=== PATIENT | male | born 1960 | race Caucasian/White ===

== ENCOUNTER 2022-02-15 07:02 | Outpatient (CLI) | payer BC, SELFPAY ==
--- NOTE | 2022-02-15 07:51 | ECG_ITS ---
Measurements Intervals [place] Rate: 68 P: 29 FL: 161 QRS: 53 QRSD: 118 T: 39 QT: 414 QTc: 442 Interpretive Statements SINUS RHYTHM INTRAVENTRICULAR CONDUCTION DELAY NO PREVIOUS ECG AVAILABLE FOR COMPARISON Electronically Signed On 02-15-2022 17:20:31 CDT by Sherice Tejeda M.D.
== END 2022-02-15 07:03 | disposition home or self-care (01) ==
LOC: ANHLAB 07:05
PROVIDERS: PCP Family Medicine; Visit Provider Urology
DX: E78.5 Hyperlipidemia, unspecified (principal); R89.6 Abnormal cytological findings in specimens from other organs, systems and tissues; Z01.818 Encounter for other preprocedural examination; I45.9 Conduction disorder, unspecified
CPT/HCPCS: 87086; 93005

== ENCOUNTER 2022-02-20 00:40 | Day surgery (SDC) | payer BC, SELFPAY ==
[2022-02-14 16:40] VITALS: BMI 30.5
--- NOTE | 2022-02-14 17:20 | PC.NURSE ---
Report to the Outpatient Waiting Room, entrance under the green pavilion located off [facility], at time 0800 on date 02/20/22. OR Time: _1000__. Time changes happen often and if your time is changed the preop area will call you the afternoon before. - You and your visitor will be asked to self-screen and do not enter if you have any COVID symptoms. - Only one visitor and NO children visitors are allowed at this time. - The patient visitor is requested to leave or wait in car when not with patient due to restrictions. - A mask is required within the hospital. Patients may have clear liquids (water, carbonated beverages, clear teas, apple juice) until 3 hours prior to surgery with a maximum of 20 ounces. - No food from midnight until time of surgery - Infants may have breast milk until 4 hours before surgery, infant formula 6 hours prior to surgery. - Children will be allowed to drink immediately following surgery. If applicable, please bring a bottle or sippy cup to assist with drinking. Juice, water, soda, and popsicles are readily available. For infants on formula, please bring formula the day of surgery. Pacifiers are allowed. Take the following medications with a SIP of water the morning of surgery: n/a__ Medications to discontinue per physician _vitamins and supplement-02/17/22, pt is also stopping his aspirin(02/14/22) Date to take last dose Please no make-up, nail qatari, hairspray, perfume, deodorant, or body powder the day of surgery. No jewelry (including any body piercings) or valuables the day of surgery, leave them at home. Please take a shower or bath the night before, or the morning of, surgery with an antibacterial soap. Wear comfortable, loose fitting clothing. Children are encouraged to wear pajamas. - Jewelry must be removed prior to entering the operating room. Rings and piercings that are not removed may be cut off. - The hospital will not accept responsibility for valuables. - Please leave all valuables, including medications, at home the day of surgery. If you are going home after surgery, a licensed truck driver's offsider must drive you home. - NO public transportation without another adult. - We recommend that an adult stay with you for 24 hours following discharge. - We also recommend that you do not drive, make important decision, drink alcoholic beverages, or take any drugs that were not prescribed by your health care provider for at least 24 hours after your discharge time. For Pediatric surgeries, we recommend two adults accompany the child home (only one inside the building at this time). Follow any additional instructions given to you from your surgeon. If you or anyone in your household have experienced Covid symptoms in the past week, please notify your surgeon or the nurse liaison at the phone number below for possible testing. Telephone instructions given to Ana Martinez and asked if any additional questions and then verbalized understanding. Patient advised to call surgeon office or pre surgery nurse liaison [phone] if any additional questions.
[2022-02-20] VITALS (8 sets, daily range): BP systolic 116–129; BP diastolic 72–89; PULSE 71–92; RESP 12–16; TEMP 37–37.7; O2SAT 96–98
--- NOTE | ~2022-02-20 | XR_ITS ---
EXAMINATION: XR retrograde pyelo w/stent RT DATE: 02/20/2022 11:06 INDICATION: Right retrograde pyelogram and internal ureteral stent placement TECHNIQUE: 4 fluoroscopic images of the abdomen and pelvis were obtained during procedure performed b isiah Tamez. Radiologist was not present for the imaging or procedure. The amount of fluoroscopy t nasir used during this procedure was 0.4 minutes. COMPARISON: None. FINDINGS: Retrograde contrast opacification of the right ureter and renal collecting system which demonstrates no evident filling defects or urothelial irregularities. Final images demonstrate placement of a righ t internal ureteral stent with loops formed in the right renal pelvis and in the bladder. IMPRESSION: 1. Right internal ureteral stent in expected position post normal retrograde pyelogram. See procedure note for further detail. Reviewed, dictated and finalized at location B. IMPRESSION: 1. Right internal ureteral stent in expected position post normal retrograde py elogram. See procedure note for further detail.
[2022-02-20 08:29] LABS: Glucose Point of Care 109 mg/dl (65-105)
[2022-02-20] MEDS: LACTATED RINGERS 1,000 ML 30 ML IV CONT ×2 (08:30→11:46)
--- NOTE | 2022-02-20 08:40 | WPDANESEPPF ---
Anes - Initial Pre Proc Eval Procedure: Operation Date: 02/20/22 10:00 Proposed Procedures p Cystoscopy with Bladder Biopsy, Possible Bilateral Retrograde Pyelograms, Possible Bilateral Ureteral Stent Placement - Reilly Tamez MD Date/Time: 02/20/22 08:40 Surgeon: Reilly Tamez MD Pre Op Diagnosis: Abnormal Cytolgy Patient Data Age: 61 Gender: M Height: 1.85 m Weight: 105 kg Allergies Allergy/AdvReac Type Severity Reaction Status Date / Time No Known Allergies Allergy Verified 02/20/22 08:30 Home Medications Medication Instructions Recorded Confirmed Type ascorbic acid (vitamin C) 250 mg 250 mg PO DAILY 02/14/22 02/14/22 History tablet (Vitamin C) aspirin 81 mg tablet 81 mg PO DAILY 02/14/22 02/14/22 History cholecalciferol (vitamin D3) 10 10 mcg PO DAILY 02/14/22 02/14/22 History mcg (400 unit) capsule (Vitamin D3) citalopram 40 mg tablet 40 mg PO DAILY 02/14/22 02/14/22 History omega 8-fmy-vrk-fish oil 60 mg-90 1 cap PO DAILY 02/14/22 02/14/22 History mg-500 mg capsule (Fish Oil) omeprazole 40 mg capsule,delayed 40 mg PO DAILY 02/14/22 02/14/22 History release simvastatin 40 mg tablet 40 mg PO DAILY 02/14/22 02/14/22 History tadalafil 20 mg tablet 20 mg PO 2XW PRN Erectile 02/14/22 02/14/22 History Dysfunction zolpidem 10 mg tablet 10 mg PO HS 02/14/22 02/14/22 History Laboratory Tests 02/20/22 08:24 POC Capillary Glucose 109 mg/dl H mg/dl (65-105) Patient hx anesthesia problems: none Family hx anesthesia problems: none Results Review: All pre-operative results and documents have been reviewed as part of the pre-operative evaluation. [facility] Past Medical History Medical History Anxiety GERD (gastroesophageal reflux disease) Hx of migraines Hyperlipidemia Irregular heart beat Seizure disorder Social History Social History Smoking packs per day: 2 Smoking cigarettes per day: 40.0 Years smoked: 22 Smoking pack-years: 44.00 Smoking status: Former smoker Tobacco type: cigarettes and cigars Alcohol intake: never Substance use: never Living arrangements: with family Spiritual care concerns: No Anes - Eval Final PreProcedure Day of Procedure 02/20/22 08:40 Patient weight: obese Heart: regular rate and rhythm Lungs: clear to auscultation Airway: Mallampati scale class II Neurological: alert and oriented Last oral intake: >/= 8 hours ASA classification: III Emergent: no Anesthetic plan: proceed Anesthesia type and monitoring: general LMA and standard monitoring Results Review: All pre-operative results and documents have been reviewed as part of the pre-operative evaluation. Informed Consent: The patient's anesthetic plan and its attendant risks and benefits were discussed with the patient/family/POA. Questions were solicited and answers provided to the satisfaction of the patient/family/POA.
[2022-02-20] MEDS: fentaNYL CITRATE INJ (*CRX) 100 MCG/2 ML VIAL 50 MCG IV PUSH (08:44)
[2022-02-20] MEDS: fentaNYL CITRATE INJ (*CRX) 100 MCG/2 ML VIAL 25 MCG IV PUSH (09:32)
--- NOTE | 2022-02-20 10:11 | WPDHPUPDATE1 ---
History and Physical Update Update Date/Time: 02/20/22 10:11 History and Physical has been reviewed, including an updated exam of the patient. There are NO changes in the patient's condition. Risks, benefits, and alternatives have been discussed and questions answered. Patient agrees to proceed with procedure.
[2022-02-20] MEDS: ceFAZolin 2 GM/D5W 50 ML 2 GM/50 ML BAG IVPB (10:19)
[2022-02-20] MEDS: LIDOCAINE HCL 2% GEL UROJET 10 ML PKG MUCOUS MEM (11:00)
--- NOTE | 2022-02-20 11:08 | W.PM.PROC2 ---
Procedure Note - Detailed Date of Procedure 02/20/22 Pre-op Diagnosis Abnormal cytology and bladder lesion Post-op Diagnosis Same Procedure Performed Cystoscopy, right retrograde pyelogram, right ureteroscopy, transurethral resection of bladder tumor and unroofing of right ureteral orifice, right ureteral stent placement 6 [place] contour, urethral dilation Surgeon Reilly Tamez MD Anesthesia General Description of Procedure Patient is taken to the operative suite correctly identified. Once anesthesia was obtained was placed in dorsal lithotomy position and prepped and draped usual sterile fashion. The meatus was dilated up to 26 [place]. Twenty-two [place] cystoscope was inserted into the bladder and direct vision. He has some mild lateral lobe hypertrophy. Upon entering the bladder, was inspected in its entirety. The left ureteral orifice is now visualized adequately without any irregularity around it. He has some irregularity on the floor of the bladder just proximal to the trigone extending over the right ureteral orifice to the right lateral wall. The area in question is at least 5 cm. No other papillary tumors noted at this time. At this point a rigid ureteral scope was inserted into the right ureteral orifice there was no evidence of tumor in the distal or proximal ureter. The intramural ureter appeared without tumors however there was irregularity on the orifice itself. A pyelogram was then performed through the ureteral scope. There was no evidence of filling defects proximally or in the kidney. The ureteral scope was then exchanged out for a 24 [place] resectoscope. I resected the irregularity on the floor proximal to the trigone and needed to unroof the right ureteral orifice in order to completely remove the irregularities. Hemostasis was achieved using electrocautery. Specimen was sent for analysis. The resectoscope sheath was then exchanged for a cystoscope. A guidewire was inserted into the right ureteral orifice. Six [place] contour stent was then placed with the proximal end coiled in the renal pelvis and the distal in the bladder. Given the amount of surface area that was resected a 16 [place] Hope was placed after 2% viscous lidocaine was inserted into the urethra. 10 cc were placed in balloon. He is taken recovery stable condition. Patient will be discharged home with a Hope and have that removed on . He is to call the office to have that performed. Will leave the stent in for a minimum of 6 weeks prior to its removal in the office. He is to call for path results in 1 week. Estimated Blood Loss 10 Drains Yes (Six [place] contour stent) Packing No Pathology Yes Complications No immediate complications Condition Stable Disposition PACU
== END 2022-02-20 13:22 | disposition home or self-care (01) ==
PROVIDERS: PCP Family Medicine; Visit Provider Urology
PROC: (CPT 52352; principal; 2022-02-20 10:00)
PROC: 0TBB8ZZ Excision of Bladder, Via Natural or Artificial Opening Endoscopic (ICD-10-PCS; CPT 52240; 2022-02-20 10:00)
DX: C67.8 Malignant neoplasm of overlapping sites of bladder (principal); E78.5 Hyperlipidemia, unspecified; K21.9 Gastro-esophageal reflux disease without esophagitis; F41.9 Anxiety disorder, unspecified; Z87.891 Personal history of nicotine dependence; E66.9 Obesity, unspecified; Z68.30 Body mass index [BMI] 30.0-30.9, adult; Z79.82 Long term (current) use of aspirin
CPT/HCPCS: 52240; 74420; 82948; 88305; A9270; C1769; C2617; J0131; J0690; J1100; J2250; J2405; J2704; J3010; J7120

== ENCOUNTER 2022-03-13 06:50 | Day surgery (SDC) | payer BC, SELFPAY ==
[2022-03-13] VITALS (11 sets, daily range): BP systolic 114–128; BP diastolic 66–87; PULSE 71–98; RESP 11–18; TEMP 36.1–36.7; O2SAT 93–100
--- NOTE | ~2022-03-13 | CT_ITS ---
EXAMINATION: CT abdomen pelvis w con DATE: 03/13/2022 08:32 INDICATION: Hematuria. Right flank pain. TECHNIQUE: Computed tomography (CT) of the abdomen and pelvis was performed with 100 mL Omnipaque 350 intravenous contrast. Automated exposure control and iterative reconstruction technique were employe d. The dose-length product was 893.52 mGy-cm. COMPARISON: None. FINDINGS: The visualized portions of the lung bases demonstrate mild atelectasis. No pleural effusion . The heart size is normal. No pericardial effusion. There is a small sliding hiatal hernia. There is diffuse hepatic steatosis. The gallbladder, spleen, pancreas, adrenal glands, and left kidney are no rmal. There is mild right hydronephrosis and hydroureter. There is a right internal ureteral stent in expected position. There is hematoma in the right ureter. There is a large volume of hematoma in the bladder. There is mild left hydroureter. The prostate is mildly enlarged. There is a right inguinal hernia containing fat. There are no dilated loops of bowel. The appendix is normal. There is fat stra nding at the root of the small bowel mesentery, which may be inflammation (mesenteric panniculitis) o r edema. There are no pathologically enlarged lymph nodes. There is no free intraperitoneal fluid. Th ere is mild thoracolumbar spondylosis. IMPRESSION: 1. Large volume of hematoma in the bladder. Hematoma in the right ureter. 2. Mild right hydronephrosis and hydroureter with right internal ureteral stent in expected position. 3. Mild left hydroureter. Reviewed, dictated and finalized at location A.
[2022-03-13 07:38] LABS: RBC Urine >75 /hpf (0-2); WBC Urine >75 /hpf
[2022-03-13 07:39] LABS: Add Urine Microscopic? YES; Appearance Urine Turbid (Clear); Color Urine Red (Yellow)
--- NOTE | 2022-03-13 07:43 | ED.GENADULT ---
HPI - General Adult General Chief complaint: Urogenital-Male Stated complaint: hematuria Time Seen by Provider: 03/13/22 07:12 History of Present Illness HPI narrative: 62-year-old male presenting the emergency department for evaluation of gross hematuria. Patient had a urologic procedure done on 02/20. Patient did have a ureteral biopsy and does have a right ureteral stent in place. Patient states he did have some bleeding immediately after the procedure but states he has not been passing any blood since then patient had intense right flank pain this morning and then noticed he was just urinating charles blood. Patient is not on any blood thinners. Patient's only complaint is right flank pain at this time. Patient states he has not had anything to eat or drink since last night Related Data Home Medications Medication Instructions Recorded Confirmed ascorbic acid (vitamin C) 250 mg 250 mg PO DAILY 02/14/22 02/20/22 tablet (Vitamin C) aspirin 81 mg tablet 81 mg PO DAILY 02/14/22 02/20/22 cholecalciferol (vitamin D3) 10 10 mcg PO DAILY 02/14/22 02/20/22 mcg (400 unit) capsule (Vitamin D3) citalopram 40 mg tablet 40 mg PO DAILY 02/14/22 02/14/22 omega 4-jsq-veo-fish oil 60 mg-90 1 cap PO DAILY 02/14/22 02/20/22 mg-500 mg capsule (Fish Oil) omeprazole 40 mg capsule,delayed 40 mg PO DAILY 02/14/22 02/14/22 release simvastatin 40 mg tablet 40 mg PO DAILY 02/14/22 02/14/22 tadalafil 20 mg tablet 20 mg PO 2XW PRN Erectile 02/14/22 02/14/22 Dysfunction zolpidem 10 mg tablet 10 mg PO HS 02/14/22 02/14/22 Allergies Allergy/AdvReac Type Severity Reaction Status Date / Time No Known Allergies Allergy Verified 03/13/22 11:57 Review of Systems Review of Systems: CONSTITUTIONAL: Denies fever, chills, or sweats. EYES: Denies visual changes, redness, or discharge. ENT: Denies rhinorrhea, congestion, sore throat, or otalgia. CARDIOVASCULAR: Denies chest pain, palpitations, or edema. RESPIRATORY: Denies cough or dyspnea. GASTROINTESTINAL: See HPI GENITOURINARY: See HPI SKIN: Denies rash or itching. MUSCULOSKELETAL: Denies back pain, joint pain, or myalgia. NEUROLOGIC: Denies headache, numbness, or weakness. PSYCHIATRIC: Denies anxiety or depression. REPLACED BY [facility] Past Medical History Medical History Anxiety GERD (gastroesophageal reflux disease) Hx of migraines Hyperlipidemia Irregular heart beat Seizure disorder Social History Social History Smoking packs per day: 2 Smoking cigarettes per day: 40.0 Years smoked: 22 Smoking pack-years: 44.00 Smoking status: Former smoker Tobacco type: cigarettes and cigars Alcohol intake: never Substance use: never Gender identity (if verbalized by the patient): Male Sexual Orientation (if Verbalized by the Patient): Straight or Heterosexual Spiritual care concerns: No Exam Narrative: APPEARANCE: Well appearing, no pain, no distress, well-nourished. HEAD: normocephalic, atraumatic. EYES: PERRLA/EOMI, conjunctivae clear. NOSE: Normal no drainage NECK: Supple. No adenopathy, no masses. RESPIRATORY: Airway patent, respirations nonlabored. Clear to auscultation bilaterally, no rales, rhonchi, wheezing. CARDIOVASCULAR: Regular rate and rhythm without murmurs rubs or gallops. ABDOMINAL: Soft, nontender, nondistended, normal bowel sounds MUSCULOSKELETAL: Moves all extremities. Strength/ROM intact, No edema, No calf tenderness. NEURO: Alert. Cranial nerves II through XII intact. Grossly intact SKIN: Warm, dry. Normal Color Course Course Emergency Course: Patient had an irrigating Hope catheter placed due to his gross hematuria. CT scan showed evidence of a large hematoma within the bladder and within the right ureter. Case was discussed with urology. Patient will be taken to the OR. Patient was updated on the results of his work-up including CT
[2022-03-13 07:48] LABS: Basophils Absolute Auto 0.1 K/mm3 (0.0-0.1); Basophils Percent Auto 1.4 % (0.2-1.2); Eosinophils Absolute Auto 0.3 K/mm3 (0-0.3); Eosinophils Percent Auto 4.6 % (0-4.4); Hematocrit 43.7 % (42.0-52.0); Hemoglobin 14.2 g/dL (14.0-18.0); Immature Granulocyte Absolute 0.06 K/mm3 (0.00-0.031); Lymphocytes Absolute Auto 1.61 K/mm3 (0.9-3.2); Lymphocytes Percent Auto 27.6 % (18.3-44.2); Mean Corpuscular HGB Conc 32.5 g/dl (32-36); Mean Corpuscular Hemoglobin 28.9 pg (26-34); Mean Corpuscular Volume 88.8 fl (80-100); Mean Platelet Volume 9.2 fl (7.4-10.4); Monocytes Absolute Auto 0.4 K/mm3 (0.1-0.6); Monocytes Percent Auto 7.4 % (2.6-8.5); Neutrophils Absolute Auto 3.4 K/mm3 (1.3-6.7); Platelet Count Result 274 k/mm3 (150-375); Red Blood Count 4.92 M/mm3 (4.6-6.20); Red Cell Distribution Width 12.8 % (11.5-14.5); White Blood Count 5.8 K/mm3 (4.5-10.0)
[2022-03-13] MEDS: LIDOCAINE HCL 2% GEL UROJET 10 ML PKG (07:49)
[2022-03-13 07:54] LABS: INR 1.1; Prothrombin Time 13.5 Seconds (11.1-14.7)
[2022-03-13 07:55] LABS: Alanine Aminotransferase 27 U/L (6-50); Albumin Level 4.3 g/dL (3.5-5.1); Alkaline Phosphatase 83 U/L (38-126); Anion Gap 11 mmol/L (8-16); Aspartate Amino Transferase 26 U/L (17-59); Bilirubin,Total 0.4 mg/dL (0.2-1.3); Blood Urea Nitrogen 18 mg/dL (9-20); Calcium 8.9 mg/dL (8.4-10.2); Carbon Dioxide 22 mmol/L (22-30); Chloride 106 mmol/L (98-107); Estimated CRCL calculation 80 ml/min; Estimated Glomerular Filt Rate > 60; Glucose 118 mg/dL (65-110); Partial Thromboplastin Time 27.9 SECONDS (22.3-36.8); Potassium 3.8 mmol/L (3.4-5.0); Sodium 139 mmol/L (137-145)
[2022-03-13] MEDS: SODIUM CHLORIDE 0.9% IV 1,000 ML 999 ML IV CONT (08:09)
--- NOTE | 2022-03-13 08:17 | PC.NURSE ---
Pt to CT scan via stretcher at this time.
--- NOTE | 2022-03-13 08:17 | PC.NURSE ---
Pt CBI clogged, irrigated x2 w/ large clots removed. Hope patent at this time.
--- NOTE | 2022-03-13 08:25 | PC.NURSE ---
pt. was triaged and VS obtained at apprx 0700 but data not recorded in EMR; pt. in NAD.
[2022-03-13] MEDS: LACTATED RINGERS 1,000 ML 30 ML IV CONT (12:00)
--- NOTE | 2022-03-13 12:24 | PM.IMHP ---
H&P: HPI History of Present Illness Date/Time: 03/13/22 12:24 Chief Complaint: Gross hematuria with urinary retention Narrative: 62-year-old male who underwent transurethral section of a large bladder tumor overlying the right ureteral orifice. This required unroofing of the orifice and stenting 02/20/2022. Patient did well until today when he developed gross hematuria with clots. Was unable to void presented to the emergency room. CT scan revealed not only large hematoma in the bladder but clot going up the ureter. Patient has CBI going but it is poorly irrigating. Will plan on cysto with clot evacuation in the operating room. Review of Systems Review of Systems: All systems reviewed & are unremarkable except as noted in HPI and below PMFSH Past Medical History Medical History Anxiety GERD (gastroesophageal reflux disease) Hx of migraines Hyperlipidemia Irregular heart beat Seizure disorder Social History Social History Smoking packs per day: 2 Smoking cigarettes per day: 40.0 Years smoked: 22 Smoking pack-years: 44.00 Smoking status: Former smoker Tobacco type: cigarettes and cigars Alcohol intake: never Substance use: never Spiritual care concerns: No Meds Home Medications and Allergies Home Medications Medication Instructions Recorded Confirmed Type ascorbic acid (vitamin C) 250 mg 250 mg PO DAILY 02/14/22 02/20/22 History tablet (Vitamin C) aspirin 81 mg tablet 81 mg PO DAILY 02/14/22 02/20/22 History cholecalciferol (vitamin D3) 10 10 mcg PO DAILY 02/14/22 02/20/22 History mcg (400 unit) capsule (Vitamin D3) citalopram 40 mg tablet 40 mg PO DAILY 02/14/22 02/14/22 History omega 6-gyv-ibb-fish oil 60 mg-90 1 cap PO DAILY 02/14/22 02/20/22 History mg-500 mg capsule (Fish Oil) omeprazole 40 mg capsule,delayed 40 mg PO DAILY 02/14/22 02/14/22 History release simvastatin 40 mg tablet 40 mg PO DAILY 02/14/22 02/14/22 History tadalafil 20 mg tablet 20 mg PO 2XW PRN Erectile 02/14/22 02/14/22 History Dysfunction zolpidem 10 mg tablet 10 mg PO HS 02/14/22 02/14/22 History Allergies Allergy/AdvReac Type Severity Reaction Status Date / Time No Known Allergies Allergy Verified 03/13/22 11:57 Vital Signs Vital Signs - 24 hr 03/13/22 07:11 03/13/22 09:09 03/13/22 10:27 Temperature 36.1 C L 36.3 C L Pulse Rate 98 71 87 Respiratory Rate 18 15 15 Blood Pressure 117/78 123/85 128/87 Pulse Oximetry 100 99 97 03/13/22 11:12 Temperature 36.7 C Pulse Rate 72 Respiratory Rate 12 Blood Pressure 126/79 Pulse Oximetry 96 Exam Const: General: cooperative Eyes: General: appearance normal, both eyes and all related structures Resp: Effort & Inspection: normal respiratory effort Cardio: Rate: regular rate Rhythm: regular rhythm GI: Inspection: normal to inspection Urinary Catheter: Urinary Catheter: patent and draining and urine red H&P: Results Labs Labs: Short CBC 03/13/22 Range/Units 07:39 WBC 5.8 (4.5-10.0) K/mm3 Hgb 14.2 (14.0-18.0) g/dL Hct 43.7 (42.0-52.0) % Plt Count 274 (150-375) k/mm3 BMP 03/13/22 07:39 Sodium 139 Potassium 3.8 Chloride 106 Carbon Dioxide 22 BUN 18 Creatinine 1.10 Glucose 118 H Calcium 8.9 Liver Function 03/13/22 Range/Units 07:39 Total Bilirubin 0.4 (0.2-1.3) mg/dL AST 26 (17-59) U/L ALT 27 (6-50) U/L Alkaline Phosphatase 83 (38-126) U/L Albumin 4.3 (3.5-5.1) g/dL Urine 03/13/22 Range/Units 07:19 Urine Color Red H (Yellow) Urine Appearance Turbid H (Clear) Urine pH Not Reportable Ur Specific [place] Not Reportable Urine Protein Not Reportable Urine Glucose (UA) Not Reportable Assessment and Plan Assessment and plan (1) Gross hematuria: Code(s): R31.0 - Gross hematuria St
--- NOTE | 2022-03-13 12:26 | WPDHPUPDATE1 ---
History and Physical Update Update Date/Time: 03/13/22 12:26 History and Physical has been reviewed, including an updated exam of the patient. There are NO changes in the patient's condition. Risks, benefits, and alternatives have been discussed and questions answered. Patient agrees to proceed with procedure. Proceed with cysto with clot evacuation in the operating
--- NOTE | 2022-03-13 12:31 | WPDANESEPPF ---
Anes - Initial Pre Proc Eval Procedure: Operation Date: 03/13/22 13:00 Proposed Procedures p Cystoscopy, Evacuation Bladder Clots - Reilly Tamez MD Date/Time: 03/13/22 12:31 Surgeon: Reilly Tamez MD Pre Op Diagnosis: hematuria Patient Data Age: 62 Gender: M Height: 1.85 m Weight: 104 kg Last Vital Signs Temp 98.1 F 03/13/22 11:12 Pulse 72 03/13/22 11:12 Resp 12 03/13/22 11:12 BP 126/79 03/13/22 11:12 Pulse Ox 96 03/13/22 11:12 Allergies Allergy/AdvReac Type Severity Reaction Status Date / Time No Known Allergies Allergy Verified 03/13/22 11:57 Home Medications Medication Instructions Recorded Confirmed Type ascorbic acid (vitamin C) 250 mg 250 mg PO DAILY 02/14/22 02/20/22 History tablet (Vitamin C) aspirin 81 mg tablet 81 mg PO DAILY 02/14/22 02/20/22 History cholecalciferol (vitamin D3) 10 10 mcg PO DAILY 02/14/22 02/20/22 History mcg (400 unit) capsule (Vitamin D3) citalopram 40 mg tablet 40 mg PO DAILY 02/14/22 02/14/22 History omega 4-yzl-mem-fish oil 60 mg-90 1 cap PO DAILY 02/14/22 02/20/22 History mg-500 mg capsule (Fish Oil) omeprazole 40 mg capsule,delayed 40 mg PO DAILY 02/14/22 02/14/22 History release simvastatin 40 mg tablet 40 mg PO DAILY 02/14/22 02/14/22 History tadalafil 20 mg tablet 20 mg PO 2XW PRN Erectile 02/14/22 02/14/22 History Dysfunction zolpidem 10 mg tablet 10 mg PO HS 02/14/22 02/14/22 History Laboratory Tests 03/13/22 03/13/22 03/13/22 07:19 07:39 07:39 WBC 5.8 K/mm3 K/mm3 (4.5-10.0) RBC 4.92 M/mm3 M/mm3 (4.6-6.20) Hgb 14.2 g/dL g/dL (14.0-18.0) Hct 43.7 % % (42.0-52.0) MCV 88.8 fl fl (80-100) MCH 28.9 pg pg (26-34) MCHC 32.5 g/dl g/dl (32-36) RDW 12.8 % % (11.5-14.5) Plt Count 274 k/mm3 k/mm3 (150-375) MPV 9.2 fl fl (7.4-10.4) Immature Gran % (Auto) 1.0 % H % (0-0.5) Neut % (Auto) 58.0 % % (45.5-73.1) Lymph % (Auto) 27.6 % % (18.3-44.2) Barry % (Auto) 7.4 % % (2.6-8.5) Eos % (Auto) 4.6 % H % (0-4.4) Baso % (Auto) 1.4 % H % (0.2-1.2) Lymph # (Auto) 1.61 K/mm3 K/mm3 (0.9-3.2) Barry # (Auto) 0.4 K/mm3 K/mm3 (0.1-0.6) Eos # (Auto) 0.3 K/mm3 K/mm3 (0-0.3) Baso # (Auto) 0.1 K/mm3 K/mm3 (0.0-0.1) Abs Immat Gran (auto) 0.06 K/mm3 H K/mm3 (0.00-0.031) Absolute Neuts (auto) 3.4 K/mm3 K/mm3 (1.3-6.7) Absolute Nucleated RBC 0.0 K/mm3 K/mm3 (0.0-0.012) Nucleated RBC % 0.0 % % (0.0-0.2) PT 13.5 Seconds Seconds (11.1-14.7) INR 1.1 APTT 27.9 SECONDS SECONDS (22.3-36.8) Sodium Potassium Chloride Carbon Dioxide Anion Gap BUN Creatinine Estim Creat Clear Calc Estimated GFR Glucose Calcium Total Bilirubin AST ALT Alkaline Phosphatase Total Protein Albumin Urine Color Red H (Yellow) Urine Appearance Turbid H (Clear) Urine pH Not Reportable Ur Specific [place] Not Reportable Urine Protein Not Reportable Urine Glucose (UA) Not Reportable Urine Ketones Not Reportable Ur Blood (Man) Not Reportable Urine Nitrate Not Reportable Urine Bilirubin Not Reportable Urine Urobilinogen Not Reportable Leukocyte Esterase Rfl Not Reportable Urine RBC >75 /hpf H /hpf (0-2) Urine WBC >75 /hpf H /hpf 03/13/22 07:39 WBC RBC Hgb Hct MCV MCH MCHC RDW Plt Count MPV Immature Gran
[2022-03-13] MEDS: ceFAZolin 2 GM/D5W 50 ML 2 GM/50 ML BAG IVPB (13:04)
[2022-03-13] MEDS: LIDOCAINE HCL 2% GEL UROJET 10 ML PKG MUCOUS MEM (13:21)
--- NOTE | 2022-03-13 13:36 | P.OP_ITS ---
Procedure Note - Detailed Date of Procedure 03/13/22 Pre-op Diagnosis Gross hematuria with clot retention Post-op Diagnosis Same Procedure Performed Cystoscopy with clot evacuation and fulguration Surgeon Reilly Tamez MD Anesthesia General Description of Procedure Patient is taken to the operative suite correctly identified. Once anesthesia was obtained was placed in dorsal lithotomy position and prepped and draped usual sterile fashion. Twenty-two Tamazight scope inserted bladder. He has numerous clots present. We used a Dorinda syringe to evacuate all the clots. There was approximately 4-500 cc worth. Reinspection reveals the prior resected area with some clot over it. We scraped this off. There was a little bit of oozing from just proximal to the right ureteral orifice. We fulgurated this area. We then used a rollerball to fulgurate the prior resected area. Again there appeared to be good hemostasis present. He had a little bit of clot coming from the right ureteral orifice but we decided to hold off on stent removal at this time. 2% viscous lidocaine was inserted into the urethra. Twenty Tam[address] was placed with 15 cc in the balloon. Patient was taken recovery stable condition with continuous bladder irrigation. Plan is to try and wean that off to recovery room if he does well be discharged home with a Hope catheter and have that removed on Saturday. Estimated Blood Loss 0 Drains Yes Packing No Pathology None sent Complications No immediate complications Condition Stable Disposition PACU
== END 2022-03-13 15:48 | disposition home or self-care (01) ==
LOC: ANHED 10:08 → ANHSURGERY 10:15
PROVIDERS: Emergency Provider Emergency Medicine; PCP Family Medicine; Visit Provider Urology
PROC: 0TCB8ZZ Extirpation of Matter from Bladder, Via Natural or Artificial Opening Endoscopic (ICD-10-PCS; CPT 52001; principal; 2022-03-13 13:00)
DX: R31.0 Gross hematuria (principal); R33.8 Other retention of urine; N13.30 Unspecified hydronephrosis; C67.9 Malignant neoplasm of bladder, unspecified; E78.5 Hyperlipidemia, unspecified; K21.9 Gastro-esophageal reflux disease without esophagitis; F41.9 Anxiety disorder, unspecified; Z87.891 Personal history of nicotine dependence; Z79.82 Long term (current) use of aspirin
CPT/HCPCS: 53899; 36415; 74177; 80053; 81001; 85025; 85610; 85730; 87086; 96360; 99285; A9270; J0690; J1100; J2405; J2704; J3010; J7030; J7120; Q9967

== ENCOUNTER 2023-07-23 09:36 | Outpatient (CLI) | payer BC, SELFPAY ==
--- NOTE | 2023-07-23 | EST_ITS ---
Patient Info Name: Taihr Martinez Age: 63 years : 1960 Gender: Male Ht: 73 in Wt: 245 lbs BSA: 2.42 m2 HR: 89 bpm BP: 127 / 79 mmHg Heart Rhythm: Sinus Rhythm Exam Date: 07/23/2023 10:11 AM Exam Location: Echo Lab Patient Status: Outpatient Admit Date: 07/23/2023 Staff Ordering Physician: Kenna, Bryon GOMES Attending Provider: Kenna, Bryon GOMES Exercise Technologist: Rosana Lynn CT Exercise Physician: Malik Gill DO Exam Type: CA stress test treadmill Study Info Indications R06.09 - Other forms of dyspnea A treadmill exercise stress test was performed. Summary 1. 1. Negative Kem exercise stress test for ischemic ST changes by ECG criteria. 2. 2. Reduced functional capacity, achieving 7 METs of workload. 3. 3. Appropriate HR response to exercise. 4. 4. Appropriate HR recovery at 1 minute post exercise. 5. 5. No imaging with stress testing. 6. 6. Patient informed of the above results. Protocol: Kem Stress ECG Details Stage: REST Duration (min): 0 min : 58 sec Speed (mph): 0.0 Grade (%): 0 HR (bpm): 84 SBP (mmHg): 127 DBP (mmHg): 79 METS: --- Stage: REST Duration (min): 5 min : 51 sec Speed (mph): 0.0 Grade (%): 0 HR (bpm): 82 SBP (mmHg): 127 DBP (mmHg): 79 METS: --- Stage: STAGE 1 Duration (min): 1 min : 0 sec Speed (mph): 1.7 Grade (%): 10 HR (bpm): 101 SBP (mmHg): 127 DBP (mmHg): 79 METS: --- Stage: STAGE 1 Duration (min): 2 min : 0 sec Speed (mph): 1.7 Grade (%): 10 HR (bpm): 112 SBP (mmHg): 127 DBP (mmHg): 79 METS: --- Stage: STAGE 1 Duration (min): 3 min : 0 sec Speed (mph): 1.7 Grade (%): 10 HR (bpm): 116 SBP (mmHg): 136 DBP (mmHg): 80 METS: --- Stage: STAGE 2 Duration (min): 1 min : 0 sec Speed (mph): 2.5 Grade (%): 12 HR (bpm): 126 SBP (mmHg): 136 DBP (mmHg): 80 METS: --- Stage: STAGE 2 Duration (min): 2 min : 0 sec Speed (mph): 2.5 Grade (%): 12 HR (bpm): 137 SBP (mmHg): 155 DBP (mmHg): 81 METS: --- Stage: STAGE 2 Duration (min): 2 min : 30 sec Speed (mph): 2.5 Grade (%): 12 HR (bpm): 142 SBP (mmHg): 155 DBP (mmHg): 81 METS: --- Stage: RECOVERY Duration (min): 0 min : 29 sec Speed (mph): 0.0 Grade (%): 0 HR (bpm): 139 SBP (mmHg): 155 DBP (mmHg): 81 METS: --- Stage: RECOVERY Duration (min): 1 min : 29 sec Speed (mph): 0.0 Grade (%): 0 HR (bpm): 124 SBP (mmHg): 155 DBP (mmHg): 81 METS: --- Stage: RECOVERY Duration (min): 2 min : 29 sec Speed (mph): 0.0 Grade (%): 0 HR (bpm): 104 SBP (mmHg): 155 DBP (mmHg): 81 METS: --- Stage: RECOVERY Duration (min): 3 min : 29 sec Speed (mph): 0.0 Grade (%): 0 HR (bpm): 102 SBP (mmHg): 141 DBP (mmHg): 82 METS: --- Stage: RECOVERY Duration (min): 3 min : 44 sec Speed (mph): 0.0 Grade (%): 0 HR (bpm): 100 SBP (mmHg): 141 DBP (mmH
== END 2023-07-23 09:37 | disposition home or self-care (01) ==
PROVIDERS: PCP Family Medicine; Visit Provider Physician Assistant
DX: R06.00 Dyspnea, unspecified (principal)
CPT/HCPCS: 93017

== ENCOUNTER 2024-02-17 15:35 | Observation (INO) | payer BC, SELFPAY ==
--- NOTE | ~2024-02-17 | CT_ITS ---
CT abdomen pelvis w con Ordering provider: Vanessa Warren PA-C History: 63 years Male with . RLQ pain . Comparison: March 13, 2022 Technique: CT abdomen and pelvis with IV and without oral contrast. Automated exposure control and it erative reconstruction technique were employed. The dose-length product was 1139.43 mGy-cm. 100 mL Om nipaque 350 was given IV. Findings: VISUALIZED LOWER CHEST: Dependent atelectatic changes. Nodule seen in the lingula measuring 8.5 mm. 3 -6 months follow-up CT is advised UPPER ABDOMINAL ORGANS: Liver: Fat infiltration. Gallbladder: Normal. Spleen: Normal. Stomach/duodenum: Small sliding hiatus hernia. Pancreas: Normal. Adrenals: Normal. Kidneys: Tiny cyst in the right kidney midpole. Minimal fullness of the left renal pelvis and ureter. No definite stones seen. PELVIC ORGANS: The bladder shows slightly thickened wall. BOWEL AND MESENTERY: Colon: No evidence of diverticulitis. Slightly thickened wall of the appendix with surrounding fat st randing suggestive of appendicitis. Clinical correlation advised. The appendix measures 8.5 mm. Small Bowel: Normal. No obstruction. Peritoneum/mesentery: No free air or free fluid. No mesenteric lymphadenopathy. Mesenteric panniculit is is noted. RETROPERITONEUM: Mild atheromatous disease of the abdominal aorta. No retroperitoneal lymphadenopat hy. MUSCULOSKELETAL: Superficial soft tissues: Bilateral fat containing inguinal hernias. The superficial soft tissues are normal. Bones: Age appropriate degenerative changes of the spine. IMPRESSION: 1. Highly suggestive of appendicitis. 2. Panniculitis in the upper mesentery. 3. Bilateral fat containing inguinal hernias. 4. Nodule in the lingula which measures 8.5 mm. 3-[address] follow-up is advised. 5. Minimal fullness of the left renal pelvis and ureter with no definite stones. Reviewed, dictated and finalized at location A. IMPRESSION: 1. Highly suggestive of appendicitis. 2. Panniculitis in the upper mesentery. 3. Bilateral fat containing inguinal hernias. 4. Nodule in the lingula which measures 8.5 mm. 3-[address] follow-up is adv ised. 5. Minimal fullness of the left renal pelvis and ureter with no definite stone s.
[2024-02-17 16:27] VITALS: BP 161/105; PULSE 96; RESP 18; TEMP 36.3; O2SAT 98
--- NOTE | 2024-02-17 17:27 | ED.ABDPAIN ---
HPI - Abdominal Pain General Chief Complaint: Abdominal Pain <ELISEO Betancourt Last Filed: 02/17/24 17:33> Stated Complaint: abd pain <ELISEO Betancourt Last Filed: 02/17/24 17:33> Time Seen by Provider: 02/17/24 17:27 <ELISEO Betancourt Last Filed: 02/17/24 17:33> Focused HPI: Patient is a 63 y/o male who presents to the ED with c/o RLQ ABD pain. Patient reports he woke up after his midnight shift yesterday around 230pm with pain in his RLQ. Pain has been constant since then. Worse with movement, driving over potholes. He took Tylenol twice for the pain yesterday. Has not taken anything for pain today. Reports decreased appetite, subjective fevers, nausea, mild oliguria. Denies dysuria, hematuria, diarrhea, constipation. Last BM 2 days ago. He does not want anything for pain currently. GENERAL: Mildly uncomfortable-appearing, well-nourished, and in no acute distress. HEAD: Normocephalic, atraumatic. CHEST: Clear to auscultation. ?No respiratory distress. HEART: Regular rate and rhythm.? ABD: Mild focal TTP in RLQ, no appreciable rebound tenderness. Normoactive BS. NEURO: ?Alert and oriented x3. Patient screened in triage and initial orders placed.? ?Additional care and disposition to be based upon?diagnostic testing and treatment. <ELISEO Betancourt Last Filed: 02/17/24 17:33> Source: patient <ELISEO Betancourt Last Filed: 02/17/24 17:33> Mode of arrival: ambulatory <ELISEO Betancourt Last Filed: 02/17/24 17:33> Limitations: no limitations <ELISEO Betancourt Last Filed: 02/17/24 17:33> History of Present Illness HPI narrative: patient is a 63-year-old gentleman who presents emergency department chief complaint of right lower quadrant abdominal pain. Patient reports yesterday started having discomfort around 2:30 p.m. reports the pain has gotten worse had subjective fever and also notice that he has had decreased appetite patient states the pain localizes to the right lower quadrant reports it is worse whenever he hit bumps with his vehicle. <Edmar Dickson MD - Last Filed: 02/17/24 21:19> Related Data Home Medications: Home Medications Medication Instructions Recorded Confirmed ascorbic acid (vitamin C) 250 mg 250 mg PO DAILY 02/14/22 02/20/22 tablet (Vitamin C) aspirin 81 mg tablet 81 mg PO DAILY 02/14/22 02/20/22 cholecalciferol (vitamin D3) 10 10 mcg PO DAILY 02/14/22 02/20/22 mcg (400 unit) capsule (Vitamin D3) citalopram 40 mg tablet 40 mg PO DAILY 02/14/22 02/14/22 omega 9-lmq-bwu-fish oil 60 mg-90 1 cap PO DAILY 02/14/22 02/20/22 mg-500 mg capsule (Fish Oil) omeprazole 40 mg capsule,delayed 40 mg PO DAILY 02/14/22 02/14/22 release simvastatin 40 mg tablet 40 mg PO DAILY 02/14/22 02/14/22 tadalafil 20 mg tablet 20 mg PO 2XW PRN Erectile 02/14/22 02/14/22 Dysfunction zolpidem 10 mg tablet 10 mg PO HS 02/14/22 02/14/22 <Vanessa Warren PA-C - Last Filed: 02/17/24 17:33> Allergies/Adverse Reactions: Allergies Allergy/AdvReac Type Severity Reaction Status Date / Time No Known Allergies Allergy Verified 02/17/24 16:30 <Vanessa Warren PA-C - Last Filed: 02/17/24 17:33> Review of Systems Review of Systems: A 10 system review of systems was completed on the patient and is negative except for what is stated in the HPI. Nursing and ancillary documentation was reviewed. <Edmar Dickson MD - Last Filed: 02/17/24 21:19> [facility] Past Medical History Medical History: Medical History Anxiety GERD (gastroesophageal reflux disease) Hx of migraines Hyperlipidemia Irregular heart beat Seizure disorder <Vanessa Warren PA-C - Last Filed: 02/17/24 17:33> Social History Social History: Social History (Reviewed 02/17/24 @ 21:16 by Edmar Dickson
[2024-02-17 18:12] LABS: Basophils Absolute Auto 0.1 K/mm3 (0.0-0.1); Basophils Percent Auto 1.2 % (0.2-1.2); Eosinophils Absolute Auto 0.4 K/mm3 (0-0.3); Eosinophils Percent Auto 4.4 % (0-4.4); Hematocrit 52.9 % (42.0-52.0); Hemoglobin 17.2 g/dL (14.0-18.0); Immature Granulocyte Absolute 0.05 K/mm3 (0.00-0.031); Immature Granulocyte Percent A 0.6 % (0-0.5); Lymphocytes Absolute Auto 3.39 K/mm3 (0.9-3.2); Lymphocytes Percent Auto 37.5 % (18.3-44.2); Mean Corpuscular HGB Conc 32.5 g/dl (32-36); Mean Corpuscular Hemoglobin 27.5 pg (26-34); Mean Corpuscular Volume 84.6 fl (80-100); Mean Platelet Volume 10.2 fl (7.4-10.4); Monocytes Absolute Auto 0.9 K/mm3 (0.1-0.6); Monocytes Percent Auto 10.1 % (2.6-8.5); Neutrophils Absolute Auto 4.2 K/mm3 (1.3-6.7); Neutrophils Percent Auto 46.2 % (45.5-73.1); Platelet Count Result 271 k/mm3 (150-375); Red Blood Count 6.25 M/mm3 (4.6-6.20); Red Cell Distribution Width 13.5 % (11.5-14.5); White Blood Count 9.1 K/mm3 (4.5-10.0)
[2024-02-17 18:38] LABS: Lactic Acid Reflex 1.2 mmol/L (0.7-2.0)
[2024-02-17 18:39] LABS: Alanine Aminotransferase 22 U/L (6-50); Albumin Level 4.5 g/dL (3.5-5.1); Alkaline Phosphatase 94 U/L (38-126); Anion Gap 8 mmol/L (4-12); Aspartate Amino Transferase 26 U/L (17-59); Bilirubin,Total 0.6 mg/dL (0.2-1.3); Blood Urea Nitrogen 12 mg/dL (9-20); Calcium 9.3 mg/dL (8.4-10.2); Carbon Dioxide 24 mmol/L (22-30); Chloride 105 mmol/L (98-107); Estimated Glomerular Filt Rate > 60; Glucose 89 mg/dL (65-110); Lipase 121 U/L (23-300); Sodium 137 mmol/L (137-145)
[2024-02-17 19:58] VITALS: BP 153/97; PULSE 75; RESP 16; TEMP 36.6; O2SAT 97
[2024-02-17 20:27] LABS: Add Urine Microscopic? YES; Appearance Urine Clear (Clear); Bacteria Urine None Seen /hpf; Bilirubin Urine Negative (Negative); Blood Urine Negative (Negative); Color Urine Yellow (Yellow); Glucose Urine UA Negative (Negative); Ketones Urine Negative (Negative); Leukocyte Esterase Ur Trace LEU/UL (Negative); Nitrate Urine Negative (Negative); Non Pathogenic Casts 0-2; Protein Urine Negative (Negative); RBC Urine 0-2 /hpf (0-2); Specific Grav Ur 1.016 (1.001-1.035); Squamous Epithelial Cell Urine None Seen /hpf (Few); Urobilinogen Urine 0.2 mg/dL (<2.0); pH Urine 5.5 (5.0-9.0)
[2024-02-17 21:05] VITALS: BP 135/87; PULSE 77; RESP 16; TEMP 36.4; O2SAT 93
[2024-02-17] MEDS: PIPERACILLN/TAZ 3.375GM/NS50ML 3.375 GM/50 ML BAG IVPB (21:26)
[2024-02-17] MEDS: SODIUM CHLORIDE 0.9% IV 1,000 ML 125 ML IV CONT (21:43)
[2024-02-17 22:00] VITALS: BP 134/87; PULSE 72; RESP 20; TEMP 36.6; O2SAT 97; BMI 31.4
[2024-02-18] VITALS (11 sets, daily range): BP systolic 108–161; BP diastolic 59–88; PULSE 68–90; RESP 14–20; TEMP 36.4–36.6; O2SAT 90–98
[2024-02-18] MEDS: SODIUM CHLORIDE 0.9% IV 1,000 ML 125 ML IV CONT (05:44)
[2024-02-18] MEDS: PIPERACILLN/TAZ 3.375GM/NS50ML 3.375 GM/50 ML BAG IVPB ×2 (05:45→11:00)
[2024-02-18] MEDS: MORPHINE SULFATE (*CRX) 4 MG/ML INJ IV PUSH (09:15)
[2024-02-18] MEDS: ACETAMINOPHEN 325 MG TABLET 650 MG PO (10:47)
--- NOTE | 2024-02-18 11:22 | PM.IMHP ---
H&P: HPI History of Present Illness Date/Time: 02/18/24 11:22 Chief Complaint: RLQ abdominal pain Narrative: This is a 63 yo man with history of hyperlipidemia, insomnia, and bladder cancer s/p TUR of bladder tumor in 2021, who presented to the ED last night with complaints of RLQ abdominal pain. His pain started about 42 hours ago. 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 He reports chills and felt like he had a fever, but did not take his temperature. He took Tylenol and went to work that night. His pain remained constant. Yesterday, he had poor appetite and had persistent pain with concerns of having appendicitis, therefore he came into the ED. Labs showed a normal WBC count. CT scan of the abdomen and pelvis showed probable acute appendicitis. Incidental findings of a nodule in the lingula and bilateral fat containing inguinal hernias. He was admitted for surgical evaluation and treatment. He is seen on the medical floor. He denies previous abdominal surgeries. He has a history of bladder cancer and has follow-up cystoscopies every 3 months in his Urologist's office. He last had a colonoscopy 5 years ago that was reportedly negative. Review of Systems Review of Systems: All systems reviewed & are unremarkable except as noted in HPI and below PMFSH Past Medical History Medical History Anxiety GERD (gastroesophageal reflux disease) History of bladder cancer Hx of migraines Hyperlipidemia Irregular heart beat Seizure disorder Surgical History Surgical History History of cystoscopy Family History Family History Grandparent Diabetes mellitus Mother Cervical cancer Social History Social History Smoking packs per day: 2 Smoking cigarettes per day: 40.0 Years smoked: 22 Smoking pack-years: 44.00 Smoking status: Former smoker Alcohol intake: former Substance use: never Do You Feel Safe in your Home?: Yes Lack of Transportation: No Lack of Food: Never True Current Housing: I Have Housing Concerned About Future Housing: No Difficulty Paying Gas/Electric Bills: No Difficulty Paying for Meds: No Currently Unemployed: No Education: High School Diploma/GED Difficulty w/ Childcare or Family Care: No Living arrangements: with family Gender identity (if verbalized by the patient): Male Sexual Orientation (if Verbalized by the Patient): Straight or Heterosexual Spiritual care concerns: No Meds Home Medications and Allergies Home Medications Medication Instructions Recorded Confirmed Type ascorbic acid (vitamin C) 250 mg 250 mg PO QPM 02/14/22 02/17/24 History tablet (Vitamin C) aspirin 81 mg tablet 81 mg PO DAILY 02/14/22 02/17/24 History cholecalciferol (vitamin D3) 10 10 mcg PO QPM 02/14/22 02/17/24 History mcg (400 unit) capsule (Vitamin D3) citalopram 40 mg tablet 40 mg PO QPM 02/14/22 02/17/24 History omega 0-shh-hse-fish oil 60 mg-90 1 cap PO QPM 02/14/22 02/17/24 History mg-500 mg capsule (Fish Oil) omeprazole 40 mg capsule,delayed 40 mg PO QPM 02/14/22 02/17/24 History release simvastatin 40 mg tablet 40 mg PO QPM 02/14/22 02/17/24 History zolpidem 10 mg tablet 10 mg PO HS PRN Insomnia 02/14/22 02/17/24 History Allergies Allergy/AdvReac Type Severity Reaction Status Date / Time No Known Allergies Allergy Verified 02/17/24 21:31 Vital Signs Vital Signs - 24 hr 02/17/24 16:27 02/17/24 19:58 02/17/24 21:05 Temperature 97.4 F L 98 F 97.6 F Pulse Rate 96 75 77 Respiratory Rate 18 16 16 Blood Pressure 161/105 H 153/97 H 135/87 Pulse Oximetry 98 97 93 Oxygen Delivery Room Air 02/17/24 22:00 02/17/24 23:55 02/18/24 05:24 Temperature 97.8 F
[2024-02-18] MEDS: LACTATED RINGERS 1,000 ML 30 ML IV CONT (13:30)
--- NOTE | 2024-02-18 14:31 | WPDANESEPPF ---
Anes - Initial Pre Proc Eval Procedure: Operation Date: 02/18/24 15:00 Proposed Procedures p Laparoscopic Appendectomy - Paola Nam MD Date/Time: 02/18/24 14:31 Surgeon: Paola Nam MD Pre Op Diagnosis: Acute appendicitis Patient Data Age: 63 Gender: M Height: 1.85 m Weight: 108.2 kg Last Vital Signs Temp 36.6 C 02/18/24 13:30 Pulse 76 02/18/24 13:30 Resp 18 02/18/24 13:30 BP 129/88 02/18/24 13:30 Pulse Ox 97 02/18/24 13:30 O2 Del Method Room Air 02/18/24 13:30 Allergies Allergy/AdvReac Type Severity Reaction Status Date / Time No Known Allergies Allergy Verified 02/18/24 14:17 Home Medications Medication Instructions Recorded Confirmed Type ascorbic acid (vitamin C) 250 mg 250 mg PO QPM 02/14/22 02/17/24 History tablet (Vitamin C) aspirin 81 mg tablet 81 mg PO DAILY 02/14/22 02/17/24 History cholecalciferol (vitamin D3) 10 10 mcg PO QPM 02/14/22 02/17/24 History mcg (400 unit) capsule (Vitamin D3) citalopram 40 mg tablet 40 mg PO QPM 02/14/22 02/17/24 History omega 9-hbw-haf-fish oil 60 mg-90 1 cap PO QPM 02/14/22 02/17/24 History mg-500 mg capsule (Fish Oil) omeprazole 40 mg capsule,delayed 40 mg PO QPM 02/14/22 02/17/24 History release simvastatin 40 mg tablet 40 mg PO QPM 02/14/22 02/17/24 History zolpidem 10 mg tablet 10 mg PO HS PRN Insomnia 02/14/22 02/17/24 History Laboratory Tests 02/17/24 02/17/24 17:32 19:56 WBC 9.1 K/mm3 (4.5-10.0) RBC 6.25 H M/mm3 (4.6-6.20) Hgb 17.2 D g/dL (14.0-18.0) Hct 52.9 H % (42.0-52.0) MCV 84.6 fl (80-100) MCH 27.5 pg (26-34) MCHC 32.5 g/dl (32-36) RDW 13.5 % (11.5-14.5) Plt Count 271 k/mm3 (150-375) MPV 10.2 fl (7.4-10.4) Immature Gran % (Auto) 0.6 H % (0-0.5) Neut % (Auto) 46.2 % (45.5-73.1) Lymph % (Auto) 37.5 % (18.3-44.2) [place] % (Auto) 10.1 H % (2.6-8.5) Eos % (Auto) 4.4 % (0-4.4) Baso % (Auto) 1.2 % (0.2-1.2) Lymph # (Auto) 3.39 H K/mm3 (0.9-3.2) [place] # (Auto) 0.9 H K/mm3 (0.1-0.6) Eos # (Auto) 0.4 H K/mm3 (0-0.3) Baso # (Auto) 0.1 K/mm3 (0.0-0.1) Abs Immat Gran (auto) 0.05 H K/mm3 (0.00-0.031) Absolute Neuts (auto) 4.2 K/mm3 (1.3-6.7) Absolute Nucleated RBC 0.000 K/mm3 (0.0-0.012) Nucleated RBC % 0.0 % (0.0-0.2) Sodium 137 mmol/L (137-145) Potassium 4.0 mmol/L (3.4-5.0) Chloride 105 mmol/L (98-107) Carbon Dioxide 24 mmol/L (22-30) Anion Gap 8 mmol/L (4-12) BUN 12 D mg/dL (9-20) Creatinine 1.20 mg/dL (0.7-1.3) Estim Creat Clear Calc Not Reportable Estimated GFR > 60 (59 - ) Glucose 89 mg/dL (65-110) Lactic Acid 1.2 mmol/L (0.7-2.0) Calcium 9.3 mg/dL (8.4-10.2) Total Bilirubin 0.6 mg/dL (0.2-1.3) AST 26 U/L (17-59) ALT 22 U/L (6-50) Alkaline Phosphatase 94 U/L (38-126) Total Protein 8.0 g/dL (6.3-8.2) Albumin 4.5 g/dL (3.5-5.1) Lipase 121 U/L (23-300) Urine Color Yellow (Yellow) Urine Appearance Clear (Clear) Urine pH 5.5 (5.0-9.0) Ur Specific [place] 1.016 (1.001-1.035) Urine Protein Negative mg/dL (Negative) Urine Glucose (UA) Negative mg/dL (Negative) Urine Ketones Negative mg/dL (Negative) Ur Blood (Man) Negative (Negative) Urine Nitrate Negative (Negative) Urine Bilirubin Negative (Negative) Urine Urobilinogen 0.2 mg/dL (<2.0) Leukocyte Esterase Rfl Trace H BEKAH/UL (Negative) Urine RBC 0-2 /hpf (0-2) Urine WBC 6-10 H /hpf (0-3) Ur Squamous Epith Cells None seen /hpf (Few) Urine Bacteria None seen /hpf Urine Casts 0-2 Patient hx anesthesia problems
--- NOTE | 2024-02-18 14:43 | WPDHPUPDATE1 ---
History and Physical Update Update Date/Time: 02/18/24 14:43 History and Physical has been reviewed, including an updated exam of the patient. There are NO changes in the patient's condition. Risks, benefits, and alternatives have been discussed and questions answered. Patient agrees to proceed with procedure.
[2024-02-18] MEDS: BUPIVACAINE/EPINEPHRINE 0.5% 50 ML VIAL 30 ML INFILTRATE (15:23)
--- NOTE | 2024-02-18 15:50 | P.OP_ITS ---
Procedure Note - Detailed Date of Procedure 02/18/24 Pre-op Diagnosis Acute appendicitis Post-op Diagnosis Same Procedure Performed laparoscopic appendectomy Surgeon Paola Nam MD Anesthesia General Indications 63-year-old male presenting to the emergency department with acute appendicitis Findings acute appendicitis no evidence of perforation Description of Procedure The patient was taken to the operating room and placed in the supine position. After adequate induction of general anesthesia, the patient was prepped and draped in the normal sterile fashion. A time-out was then done to verify the pa tient's identity, as well as the procedure being performed. I began by making a 5 mm incision in the infraumbilical region, through this a Veress needle was placed in the peritoneal cavity. CO2 gas was then insufflated and after adequate pneumoperitoneum was achieved the Veress needle was removed. Then placed a 5 mm Optiview trocar under direct visualization into the peritoneal cavity. I then insufflated through this trocar site and the endoscope was placed into the trocar. Under direct visualization, placed 2 further 5 mm suprapubic port as well as an additional 12 mm port in the left lower abdomen. At this point identified the cecum, I retracted the cecum both medially and superiorly allowing me to expose the appendix. The appendix was noted to be very dilated and inflamed. The appendix was noted to be very adherent to the right lateral sidewall as well as the ileum. I was able to bluntly dissect the appendix from these adhesions. I then was able to locate the base of the a ppendix with the cecum. I created a window with the [place] dissector between the appendix itself and the mesoappendix. I then transected the mesoappendix with a white vascular staple load. The Endo-JHON was then reloaded with a blue staple load and I transected the base of the appendix. Once the specimen was completely detached, an endo-pouch was placed into the 12 mm port site and the specimen was removed through the endo-pouch. The appendiceal specimen will be sent to pathology for further review. I then copiously irrigated the right lower quadrant. There was noted to be some mild bleeding at the vascular staple line and this was controlled with the Bovie cautery. Hemostasis was then noted at both staple lines no other pathology was seen in this area. I then moved the camera to the suprapubic port to check our its port of entry. No iatrogenic injury or other pathology was noted in the upper abdomen. I then closed the 12 mm port site with a Jason code and 0 Vicryl suture under direct visualization. At this point, the abdomen was desufflated and all ports were removed. All port sites were closed with 4 Monocryl subcuticular suture. Dermabond was placed on all wounds. The patient tolerated the procedure well and was extubated in the operating room postop. He will be sent to the recovery room in stable condition. Estimated Blood Loss 20 Drains No Packing No Pathology Yes Complications No immediate complications Condition Stable Disposition PACU [facility] Billing Surgery - Charge Forward: Surgery Billing
[2024-02-18] MEDS: SIMVASTATIN 20 MG TABLET 40 MG PO (17:01)
[2024-02-18] MEDS: CITALOPRAM HYDROBROMIDE 20 MG TABLET 40 MG PO (17:01)
[2024-02-18] MEDS: OMEGA 3 POLYUNSAT FATTY ACIDS 1 GM CAP PO (17:02)
[2024-02-18] MEDS: CHOLECALCIFEROL 400 UNITS TABLET (VIT D) PO (17:02)
[2024-02-18] MEDS: ASCORBIC ACID 250 MG TABLET PO (17:14)
[2024-02-18] MEDS: HYDROcodone/acetaminophen (*CRX) 5-325 MG TABLET 1 TAB PO (21:13)
[2024-02-19 06:53] VITALS: BP 109/58; PULSE 69; RESP 16; TEMP 36.4; O2SAT 95
[2024-02-19 07:37] VITALS: O2SAT 93
[2024-02-19] MEDS: ASPIRIN 81 MG ENTERIC TABLET PO (08:07)
--- NOTE | 2024-02-19 10:16 | PM.DS ---
DS: Admitting Diagnosis Discharge Date 02/19/24 Admitting Diagnosis acute appendicitis DS: Discharge Diagnosis Discharge Diagnosis (1) Acute appendicitis: Code(s): K35.80 - Unspecified acute appendicitis Status: Acute Assessment and Plan: Status post laparoscopic appendectomy, doing well, continue routine postop care, home with p.o. analgesia and Colace, follow-up 2 weeks DS: Summary Hospital Course Reason for hospitalization: acute appendicitis Hospital Course: The patient is a 63-year-old male presenting to the emergency department complaining of severe right lower quadrant abdominal pain. Workup, including CT scan, was significant for acute appendicitis. The patient was admitted to the surgical service, made NPO, and started on IV antibiotics. Upon evaluation, it was decided the patient would need urgent appendectomy. The patient was taken to the operating room on 02/17 and laparoscopic appendectomy was performed. Please see full operative report for details of that procedure. Postoperatively, the patient did well and was transferred back to the surgical floor. On postoperative day 1. , the patient reports that he feels much improved and just has some moderate incisional pain. He has been up and out of bed without issue and his pain is well controlled with p.o. analgesia. The patient has been able to tolerate a diet without difficulty. He will be sent home with instructions for routine postoperative care and prescriptions for [place] and Colace. He will follow up with me in 2 weeks. Status at Discharge Functional status at discharge: independent ambulation Overall status at discharge: patient is progressing back to baseline Time Spent with Patient Time attestation: Total time spent providing and/or coordinating discharge services: Time spent: Less than 30 minutes Exam Const: General: cooperative, comfortable and no acute distress Resp: Auscultation: clear to auscultation bilaterally Cardio: Rate: regular rate Rhythm: regular rhythm GI: Inspection: normal to inspection, distended and incision GI Palp: Yes abdominal tenderness, Yes Soft to palpation, Yes Tenderness to palpation present (GI), No Guarding due to palpation present (GI) and No Rigid due to palpation DS: Data Data Completed and Pending Pending studies at discharge: Pending at discharge 02/18/24 15:28 Surgical [PTH] Routine Labs on day of discharge: Preliminary micro results at discharge 02/17/24 19:56 Urine Culture - Preliminary Urine Clean Catch Discharge Plan Discharge Attending physician on discharge: Paola Nam Discharging Clinician: Paola Nam Patient Disposition: Home, Self-Care Activity: may shower and as tolerated Diet: as tolerated Wound Care Instructions: incision open to air Discharge Instructions: DISCHARGE INSTRUCTION SHEET FOR HERNIA, GALLBLADDER AND APPENDIX SURGERIES DR. NAM PATIENT TO TAKE HOME 1. May shower in 24 hours, no soaking in bath x 2weeks. 2. Call office for: Wound increasingly painful or bleeding Vomiting Fever of greater than 101 degrees 3. If no bowel movement for three days, take 1 oz. (30 ml) Milk of Magnesia or MiraLax 17g 1 to 2 times daily. 4. No heavy lifting > 10-15 pounds x 6 weeks for hernia repairs and 2 weeks for laparoscopic cholecystectomy or appendectomy. 5. No driving for 3 days or while taking narcotic pain medications. 6. Ice to surgical site for 48 hours (30 min on, then 30 min off). 7. Up walking 10-30 minutes three times per day. 8. Resume previous home medications. 9. Follow-up 10-14 days in office for wound check or as previously scheduled. ([phone]) 10. Oral pain medications prescription to be sent to pharmacy. Take Tylenol 500mg every 6 hours and Ibuprofen 600mg every 6 hours for the first 2 days, then as needed. 11. NUTRITION: Start out
== END 2024-02-19 10:58 | disposition home or self-care (01) ==
LOC: ANHED 21:19 → ANH3MEDSUR 21:42
PROVIDERS: Physician Assistant; Admitting Provider Surgery; Emergency Provider Emergency Medicine; PCP Family Medicine; Visit Provider Surgery
PROC: 0DTJ4ZZ Resection of Appendix, Percutaneous Endoscopic Approach (ICD-10-PCS; CPT 44970; principal; 2024-02-18 15:00)
DX: K35.80 Unspecified acute appendicitis (principal); K38.8 Other specified diseases of appendix; E66.9 Obesity, unspecified; Z68.31 Body mass index [BMI] 31.0-31.9, adult; E78.5 Hyperlipidemia, unspecified; K21.9 Gastro-esophageal reflux disease without esophagitis; G47.00 Insomnia, unspecified; G40.909 Epilepsy, unspecified, not intractable, without status epilepticus; Z87.891 Personal history of nicotine dependence; Z79.82 Long term (current) use of aspirin; Z79.899 Other long term (current) drug therapy; Z85.51 Personal history of malignant neoplasm of bladder
CPT/HCPCS: 44970; 36415; 74177; 80053; 81001; 83605; 83690; 85025; 87086; 88304; 96365; 99285; A9270; G0378; J0330; J1100; J2270; J2405; J2543; J2704; J7030; J7120; Q9967

== ENCOUNTER 2024-05-26 14:13 | Outpatient (CLI) | payer BC, SELFPAY ==
--- NOTE | ~2024-05-26 | CT_ITS ---
Clinical indication:Pulmonary nodule COMPARISON:Examination was compared with the superiormost cuts of prior CT's of the abdomen and pelvi s dated 02/17/2024 and 03/13/2022. TECHNIQUE: Multiple contiguous axial images of the chest were performed without the administration of intravenous contrast. DLP: 243 mGy-cm FINDINGS: LUNG: Redemonstration of a soft tissue attenuation nodule within the lingula measuring 8.1 mm (compared wit h 8.5 mm on the previous examination). No additional pulmonary nodules are identified. The lungs are otherwise clear. MEDIASTINUM:No morphologically suspicious or pathologically enlarged lymph nodes within the mediastin um. HEART:The heart is of normal size, without pericardial effusion. SOFT TISSUES OF THE CHEST: Unremarkable. BONES OF THE CHEST: No acute fractures. VISUALIZED PORTION OF THE UPPER ABDOMEN: Small hiatal hernia. IMPRESSION: Stable CT examination of the chest (taking into account changes in positioning and technique) with re demonstration of an 8 mm nodule within the lingula. Follow-up as per Fleischner guidelines is recommended, which dictates: Consider CT at 3 months, PET/CT or biopsy. Reviewed, dictated and finalized at location A. DESK SUPERVISOR IMPRESSION: Stable CT examination of the chest (taking into account changes in positioning and technique) with redemonstration of an 8 mm nodule within the lingula. Follow-up as per Fleischner guidelines is recommended, which dictates: Consider CT at 3 months, PET/CT or biopsy.
== END 2024-05-26 14:14 | disposition home or self-care (01) ==
PROVIDERS: PCP Family Medicine; Visit Provider Family Medicine
DX: R91.1 Solitary pulmonary nodule (principal)
CPT/HCPCS: 71250

== ENCOUNTER 2024-06-11 12:24 | Outpatient (CLI) | payer BC, SELFPAY ==
--- NOTE | ~2024-06-11 | PE_ITS ---
EXAMINATION: PET skull to mid thigh DATE: 06/11/2024 14:22 INDICATION: Pulmonary nodule TECHNIQUE: Blood glucose level was 100 mg/dL. 9.102 mCi of 18-fluorodeoxyglucose (18-FDG) was adminis tered i.v. Low dose computed tomography (CT) images were acquired from the base of the brain to the p roximal thighs for attenuation correction and anatomic localization. Positron emission tomography (PE T) images were acquired in the same distribution beginning 52 minutes after injection. Images includi ng fused PET/CT images were reconstructed in axial, coronal, and sagittal planes. Automated exposure control technique was employed. The dose-length product was 1338.94mGy-cm. COMPARISON: 02/17/2024 FINDINGS: Head/neck: There is symmetric increased activity in the oral cavity, laryngeal muscles and ocular muscles withou t CT correlate, likely physiologic. No pathologically enlarged cervical lymphadenopathy or suspicious foci of increased FDG uptake in the visualized head or neck. Chest: Likely benign 7-8 mm nodule at the lingula which is without FDG activity and which is unchanged since CT dated 03/13/2022. Mild dependent atelectasis in both lungs. No other suspicious pulmonary nodules, pneumonia, pulmonary edema or pleural effusion. Heart size normal. Atherosclerotic coronary artery c alcific lesion. No pericardial effusion. No pathologically enlarged or FDG avid thoracic lymphadenopa thy. Abdomen/pelvis/proximal thighs: Physiologic renal accumulation and excretion of FDG activity in the kidneys, bladder and along portio ns of ureters. There are some gas within the bladder which demonstrates mild diffuse wall thickening . This could be related to chronic outlet obstruction from the enlarged prostate which measures 5.2 x 3.4 cm. Normal degree and heterogenous pattern of increased uptake throughout the liver without radi ologic correlate or dominant FDG avid lesion. The gallbladder, pancreas, spleen and bilateral adrenal glands are normal. Mild to moderate uptake scattered throughout the bowels without radiologic correl ate, also likely physiologic. No other abnormal foci of increased FDG uptake or pathologically enlarg ed lymphadenopathy in the abdomen, pelvis or proximal thighs. Musculoskeletal: There are few scattered small sclerotic bone islands in the pelvis and right femoral head which are w ithout abnormal FDG uptake. No other suspicious lytic, blastic or FDG avid bone lesions. IMPRESSION: 1. No FDG activity associated with a likely benign 7-8 mm nodule at the lingula which is unchanged ov er greater than 2 years strongly favoring sequela of old granulomatous disease. 2. No FDG avid lesions concerning for malignancy or metastatic disease. 3. Small amount of gas within the bladder which demonstrates diffuse wall thickening. Correlate for r ecent instrumentation or Hope catheterization. The wall thickening could be related to chronic outle t obstruction from the enlarged prostate but would correlate with urinalysis. Reviewed, dictated and finalized at location B. ING SPEC IMPRESSION: 1. No FDG activity associated with a likely benign 7-8 mm nodule at the lingula which is unchanged over greater than 2 years strongly favoring sequela of old granulomatous disease. 2. No FDG avid lesions concerning for malignancy or metastatic disease. 3. Small amount of gas within the bladder which demonstrates diffuse wall thick ening. Correlate for recent instrumentation or Hope catheterization. The wall thickening could be related to chronic outlet obstruction from the enlarged pro state but would correlate with urinalysis.
[2024-06-11 12:50] LABS: Glucose Point of Care 100 mg/dl (65-105)
--- OUTSIDE RECORDS SUMMARY | 2024-06-11 13:10 | XMS_ITS | Clinical Summary ---
Author Organization [facility] Address [address] [place] [address]. [place], [place] [id number] [place] [id number] Care Team Providers Care School Services Officer Name Role Phone Kem Nicole MD Primary Care Provider [phone] Social History Tobacco Use Types Packs/Day Years Used Date Smoking Tobacco: Never Assessed Sex and Gender Information Value Date Recorded Sex Assigned at Not on file Legal Sex Male 9:46 PM CDT Gender Identity Not on file Sexual Orientation Not on file Plan of Treatment Health Maintenance Due Date Last Done Comments Colorectal Cancer Screening Colonoscopy (10 Years) 1962 Annual Physical 1965 Hepatitis C 1980 DTaP, Tdap and Td Vaccines ( 1 - Tdap) 1981 Zoster Vaccines (1 of 2) 2012 COVID-19 Vaccine (2023-2 5 season) 2024 Influenza Adult (#1) 2024 RSV Immunization or 60+ Years (1 - 1-dose 75+ series) 2037 Meningococcal B Vaccine Aged Out No l onger eligible based on patient's age to complete this topic Meningococcal Vaccine Aged Out No caro chalino eligible based on patient's age to complete this topic Pneumococcal Vaccine: Pediat rics (0 to 5 Years) and At-Risk Patients (6 to 64 Years) Aged Out No longer eligible b ased on patient's age to complete this topic RSV Immunizations Under 20 Months Aged Out No longer eligible based on patient's age to complete this topic Insurance [facility] Care Teams School Services Officer Relationship Specialty Start Date End Date Kem Nicole MD [address] [place] [phone] PCP - General FAMILY PRACTICE 08/15/22
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
== END 2024-06-11 12:25 | disposition home or self-care (01) ==
PROVIDERS: PCP Family Medicine; Visit Provider Family Medicine
DX: R91.1 Solitary pulmonary nodule (principal)
CPT/HCPCS: 78815; A9552